=== PATIENT | female | born 1935 | race Caucasian/White ===

== ENCOUNTER 2021-01-06 20:00 | Emergency (ER) | payer MEDICARE ==
[~2021-01-06] VITALS: Ht 154.9 cm; Wt 53.2 kg
[2021-01-06] MEDS ORDERED: MIRT30 PO (20:45)
[2021-01-06] MEDS ORDERED: FLUO20CA36 PO (20:45)
[2021-01-06] MEDS ORDERED: PROP20TA18 PO (20:45)
[2021-01-06] MEDS ORDERED: DILT-72 PO (20:45)
[2021-01-06] MEDS ORDERED: RISP0.5T39 PO (20:45)
[2021-01-06] MEDS ORDERED: TRAM50TA4 PO (20:45)
[2021-01-06] MEDS ORDERED: MELA5TAB3 PO (20:45)
[2021-01-06] MEDS ORDERED: FOLI0.4T6 PO (20:45)
[2021-01-06] MEDS ORDERED: ATOR10TA84 PO (20:45)
[2021-01-06] MEDS ORDERED: LORA-999 PO (20:45)
[2021-01-06] MEDS ORDERED: HYDR50TA36 PO (20:45)
[2021-01-06] MEDS ORDERED: PERTUSS(ACELL),DIPH,TET VAC/PF 0.5 ML SYRINGE IM. ONE (22:45)
[2021-01-06] MEDS ORDERED: ACETAMINOPHEN 325 MG TABLET PO ONE (22:45)
[2021-01-07 01:12] VITALS: BP 121/56
== END 2021-01-07 01:14 | disposition home or self-care (01) ==
LOC: EMS 20:01
DX: S40.011A Contusion of right shoulder, initial encounter (principal); S50.811A Abrasion of right forearm, initial encounter; F41.9 Anxiety disorder, unspecified; E78.00 Pure hypercholesterolemia, unspecified; I10 Essential (primary) hypertension; Z88.6 Allergy status to analgesic agent; W01.0XXA Fall on same level from slipping, tripping and stumbling without subsequent striking against object, initial encounter; Y93.01 Activity, walking, marching and hiking; Y92.89 Other specified places as the place of occurrence of the external cause; Y99.8 Other external cause status
CPT/HCPCS: 71045; 72170; 90471; 90715; 99284; 99285